=== PATIENT | male | born 1990 | race Two or more races ===

== ENCOUNTER 2024-09-18 15:50 | Emergency (ER) | payer BC, OTHER ==
[~2024-09-18] VITALS: Ht 170.2 cm; Wt 78.9 kg
[2024-09-18] MEDS ORDERED: OLANZAPINE 5 MG TABLET ONE (18:29)
[2024-09-18 18:35] LABS: PLATELET COUNT (AUTO) 272 K/uL (150-450); RED BLOOD CELL COUNT(AUTO) 6.50 MIL/uL (4.5-6.0); RED CELL DISTRIBUTION WIDTH 14.0 % (11.5-15.0); WHITE BLOOD COUNT (AUTO) 6.2 K/uL (4.3-11.0)
[2024-09-18] MEDS: OLANZAPINE ZYDIS 5 MG TAB.RAPDIS PO ONE (18:38)
[2024-09-18 18:44] LABS: CALCIUM, SERUM 9.0 mg/dL (8.5-10.1); CREATININE 1.1 mg/dL (0.6-1.3); SODIUM SERUM 145 mmol/L (136-145); UREA NITROGEN, BLOOD 13 mg/dL (7-18)
[2024-09-18 18:50] LABS: ALCOHOL, BLOOD < 3 mg/dL (0-10); ASPARTATE AMINOTRANSFERASE 39 U/L (15-37); TOTAL PROTEIN, SERUM 7.5 g/dL (6.4-8.2)
[2024-09-18 19:04] LABS: APPEARANCE,URINE CLEAR (CLEAR); BLOOD, URINE NEGATIVE Ery/uL (NEGATIVE); LEUKOCYTE ESTERASE ,URINE NEGATIVE (NEGATIVE); NITRITE, URINE POSITIVE (NEGATIVE); UGLUCOSE NEGATIVE (NEGATIVE)
[2024-09-18 19:14] LABS: ADD URINE CULTURE YES; SQUAMOUS EPITHELIAL CELL,UR None Seen /HPF (None Seen)
[2024-09-18 19:26] LABS: AMPHETAMINE, URINE POSITIVE (NEGATIVE); BARBITURATE, URINE NEGATIVE (NEGATIVE); BENZODIAZEPINE, URINE NEGATIVE (NEGATIVE); CANNABINOID, URINE NEGATIVE (NEGATIVE); COCCAINE, URINE NEGATIVE (NEGATIVE); OPIATE, URINE NEGATIVE (NEGATIVE)
[2024-09-18 20:43] VITALS: BP 127/90; TEMP 208.8; O2SAT 99
== END 2024-09-18 20:44 | disposition home or self-care (01) ==
LOC: ER 15:54
DX: R46.2 Strange and inexplicable behavior (principal); R53.1 Weakness; Z60.2 Problems related to living alone; Z20.822 Contact with and (suspected) exposure to COVID-19
CPT/HCPCS: 36415; 80048-TC; 80076-TC; 81001; 85025-TC; 87086-TC; G0480

== ENCOUNTER 2024-09-21 19:58 | Emergency (ER) | payer BC, OTHER ==
[~2024-09-21] VITALS: Ht 170.2 cm; Wt 77.1 kg
[2024-09-21 22:07] VITALS: BP 112/78; TEMP 97.4; O2SAT 97
== END 2024-09-21 22:48 | disposition home or self-care (01) ==
LOC: ER 20:01
DX: R42 Dizziness and giddiness (principal); F17.200 Nicotine dependence, unspecified, uncomplicated; Z60.2 Problems related to living alone